=== PATIENT | female | born 1950 | race Caucasian/White ===

== ENCOUNTER 2023-12-25 12:53 | Outpatient (CLI) | payer OTHER | END 2023-12-25 12:54 | disposition home or self-care (01) | LOC: CSHMRI 12:53 | PROVIDERS: ATTEND Family Medicine | DX: G44.86 Cervicogenic headache (principal); M47.812 Spondylosis without myelopathy or radiculopathy, cervical region; M89.9 Disorder of bone, unspecified | CPT/HCPCS: 72141 ==